=== PATIENT | female | born 1990 | race Hispanic/Latino ===

== ENCOUNTER 2018-07-17 23:05 | Emergency (ER) | payer SELFPAY ==
[2018-07-17 23:43] LABS: Absolute Lymphocytes (CBC) 1.3 K/uL (0.7-4.9); Absolute Monocytes 0.6 K/uL (0.1-1.3); Absolute Neutrophil 9.1 K/uL (1.8-8.0); Basophils % 0.1 % (0-1.3); Eosinophils % 0.1 % (0-4.4); Hematocrit 39.3 % (36.0-45.0); Lymphocytes % 11.7 % (15.3-44.8); MPV 8.7 fL (7.6-11.3); Monocytes % 5.1 % (3.3-12.3); RBC Red Blood Cell Count 4.58 M/uL (3.86-4.86)
[2018-07-17 23:54] LABS: Urine Blood NEGATIVE (NEG); Urine Glucose NEGATIVE (NEG); Urine Protein 2+ (NEG); Urine pH 5.5 (5.0-7.0)
[2018-07-18 00:19] LABS: ALT/SGPT 73 U/L (12-78); AST/SGOT 43 U/L (15-37); Albumin 3.9 g/dL (3.4-5.0); Alkaline Phosphatase 74 U/L (45-117); BUN Blood Urea Nitrogen 7 mg/dL (7-18); Bicarbonate 21 mmol/L (21-32); Bilirubin Direct 0.2 mg/dL (0-0.2); Bilirubin Total 0.4 mg/dL (0.2-1.0); Glucose Level 105 mg/dL (74-106); HCG, Quantitative 66924 mIU/mL (1-3); Lipase 164 U/L (73-393); Potassium 3.4 mmol/L (3.5-5.1); Protein, Total 8.5 g/dL (6.4-8.2); Sodium Level 138 mmol/L (136-145)
[2018-07-18] MEDS ORDERED: NA CHLORIDE 0.9% 1,000 ML ONE (00:19)
[2018-07-18] MEDS ORDERED: PROMETHAZINE 25 MG/ML VIAL ONE (00:19)
--- NOTE | 2018-07-18 01:16 | ER ---
Nurse's Notes [facility] Name: Lissa Hanna Age: 27 yrs Sex: Female : 1990 Arrival Date: 07/17/2018 Time: 23:14 Bed 6 Private MD: Diagnosis: 13 weeks gestation of ;Cholelithiasis Presentation: 07/17 23:23 Presenting complaint: Patient states: she is having epigastric pain radiating to back bb with vomiting x 5 days denies diarrhea or fever pt states she is 13 weeks . Transition of care: patient was not received from another setting of care. Onset of symptoms was July 12, 2018. Risk Assessment: Do you want to hurt yourself or someone else? Patient reports no desire to harm self or others. Initial Sepsis Screen: Does the patient meet any 2 criteria? No. Patient's initial sepsis screen is negative. Does the patient have a suspected source of infection? No. Patient's initial sepsis screen is negative. Care prior to arrival: None. 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 - Ebola Screening: : No symptoms or risks identified at this time. - Social history:: Smoking status: Patient/guardian denies using tobacco, never smoked. Screenin:24 Abuse screen: Denies threats or abuse. Denies injuries from another. Nutritional cc3 screening: No deficits noted. Tuberculosis screening: No symptoms or risk factors identified. Fall Risk Ambulatory Aid- None/Bed Rest/Nurse Assist (0 pts). Gait- Normal/Bed Rest/Wheelchair (0 pts) Mental Status- Oriented to own ability (0 pts). Assessment: 23:24 General: Appears in no apparent distress. comfortable, Behavior is calm, cooperative, cc3 appropriate for age. Pain: Complains of pain in abdomen. Neuro: Level of Consciousness is awake, alert, obeys commands, Oriented to person, place, time, situation, Appropriate for age. Cardiovascular: Denies chest pain, Patient's skin is warm and dry. Respiratory: Airway is patent Respiratory effort is even, unlabored, Respiratory pattern is regular, symmetrical. GI: Abdomen is round Bowel sounds present X 4 quads. Abd is soft and non tender X 4 quads. : No signs and/or symptoms were reported regarding the genitourinary system. EENT: No signs and/or symptoms were reported regarding the EENT system. Derm: No signs and/or symptoms reported regarding the dermatologic system. Musculoskeletal: Circulation, motion, and sensation intact. Range of motion: intact in all extremities. 07/18 00:18 Reassessment: Patient appears in no apparent distress at this time. Patient and/or cc3 family updated on plan of care and expected duration. Pain level reassessed. Patient is alert, oriented x 3, equal unlabored respirations, skin warm/dry/pink. 01:07 Reassessment: Patient appears in no apparent distress at this time. Patient and/or cc3 family updated on plan of care and expected duration. Pain level reassessed. Patient is alert, oriented x 3, equal unlabored respirations, skin warm/dry/pink. 01:25 Reassessment: Patient appears in no apparent distress at this time. Patient and/or cc3 family updated on plan of care and expected duration. Pain level reassessed. Patient is alert, oriented x 3, equal unlabored respirations, skin warm/dry/pink. RASHI Garsia discharged the patient home with prescription given. IV cannula removed and patient left ER vitally stable and ambulatory with her . Patient denies pain at this time. Patient states feeling better. Patient states symptoms have improved. Vital Signs: 07/17 23:27 BP 105 / 67; Pulse 87; Resp 16 S; Temp 98.2(O); Pulse Ox 100% on R/A; Weight 99.79 kg bb (R); Height 5 ft. 5 in. (165.10 cm) (R); Pain 11/09; 07/18 00:30 BP 129 / 74; Pulse 65; Resp 17 S; Pulse Ox 100% on R/A; cc3 01:08 BP 106 / 70; Pulse 68; Resp 17 S; Pulse Ox 99% on R/A; cc3 07/17 23:27 Body Mass Index 36.61 (99.79 kg, 165.10 cm) bb ED Course: 07/17 23:14 Patient arrived in ED. es 23:17 [facility]C [facility] kb 23:17 Angelito Ceballos MD is Attending Physician. kb 23:24 Lisa Wan is Primary Nurse. cc3 23:24 Patient has correct armband on for positive identification. Placed in gown. Bed in low cc3 position. Call light in reach. Side rails up X 1. Pulse ox on. NIBP on. 23:26 Triage completed. bb 23:27 Arm band placed on Patient placed in an exam room, on a stretcher, on pulse oximetry. bb Family accompanied patient. 23:30 Inserted saline lock: 20 gauge in right antecubital area, using aseptic technique. cc3 Blood collected. 07/18 00:26 Ultrasound completed. Patient tolerated well. Notified CAR GROOMER/PA sarah. sg3 00:30 US Abdomen Limited In Process Unspecified. EDMS 00:30 US Transvaginal Ob In Process Unspecified. EDMS 01:25 No provider procedures requiring assistance completed. IV discontinued, intact, cc3 bleeding controlled, No redness/swelling at site. Pressure dressing applied. Administered Medications: 00:05 Drug: NS 0.9% 1000 ml Route: IV; Rate: 1000 ml; Site: right antecubital; cc3 01:20 Follow up: Response: No adverse reaction; IV Status: Completed infusion; IV Intake: cc3 1000ml 00:05 Drug: Phenergan 12.5 mg Route: IVP; Site: right antecubital; cc3 00:30 Follow up: Response: No adverse reaction; Nausea is decreased cc3 Intake: 01:20 IV: 1000ml; Total: 1000ml. cc3 Outcome: 01:15 Discharge ordered by . kb 01:25 Discharged to home ambulatory, with family. cc3 01:25 Condition: stable 01:25 Discharge instructions given to patient, family, Instructed on discharge instructions, follow up and referral plans. medication usage, Demonstrated understanding of instructions, follow-up care, medications, Prescriptions given X 1. 01:30 Patient left the ED. cc3 Signatures: Dispatcher [employer] EDAR Sarah Garsia FNP-C FNP-Ckb Salyer, Edna es Almeida, Linda, RN RN bb Awa Hodges sg3 Lisa Wan cc3
--- NOTE | 2018-07-18 01:16 | EDPHYS ---
Physician Documentation [facility] Name: Lissa Hanna Age: 27 yrs Sex: Female : 1990 Arrival Date: 07/17/2018 Time: 23:14 Bed 6 Private MD: ED Physician Angelito Ceballos HPI: 07/18 00:31 This 27 yrs old Female presents to ER via Ambulatory with complaints of kb Abdominal Pain, Nausea/Vomiting, Dizziness, Back Pain. 00:30 The patient presents with abdominal pain in the epigastric area, in the right upper kb quadrant. The patient has not experienced similar symptoms in the past. The patient has not recently seen a physician. 00:31 Onset: The symptoms/episode began/occurred 5 day(s) ago. The symptoms radiate to back. kb Associated signs and symptoms: Pertinent positives: nausea and vomiting. The symptoms are described as intermittent. Modifying factors: The symptoms are alleviated by nothing, the symptoms are aggravated by nothing. Severity of pain: At its worst the pain was moderate in the emergency department the pain is unchanged. Pt reports nausea, vomiting and upper abd pain that radiates to back for 5 days. Also reports she found out she was 2 weeks ago. Last LMP was 04/16/18. . 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 - Ebola Screening: : No symptoms or risks identified at this time. - Social history:: Smoking status: Patient/guardian denies using tobacco, never smoked. ROS: 07/18 00:29 Constitutional: Negative for fever, chills, and weight loss, Neck: Negative for injury, kb pain, and swelling, Cardiovascular: Negative for chest pain, palpitations, and edema, Respiratory: Negative for shortness of breath, cough, wheezing, and pleuritic chest pain, Back: Negative for injury and pain, : Negative for injury, bleeding, discharge, and swelling, MS/Extremity: Negative for injury and deformity, Skin: Negative for injury, rash, and discoloration, Neuro: Negative for headache, weakness, numbness, tingling, and seizure. Abdomen/GI: Positive for abdominal pain, nausea and vomiting, Negative for diarrhea, constipation, abdominal cramps, abdominal distension, anorexia. Exam: 00:29 Constitutional: This is a well developed, well nourished patient who is awake, alert, kb and in no acute distress. Head/Face: Normocephalic, atraumatic. Chest/axilla: Normal chest wall appearance and motion. Nontender with no deformity. No lesions are appreciated. Cardiovascular: Regular rate and rhythm with a normal S1 and S2. No gallops, murmurs, or rubs. Normal PMI, no JVD. No pulse deficits. Respiratory: Lungs have equal breath sounds bilaterally, clear to auscultation and percussion. No rales, rhonchi or wheezes noted. No increased work of breathing, no retractions or nasal flaring. Back: No spinal tenderness. No costovertebral tenderness. Full range of motion. Skin: Warm, dry with normal turgor. Normal color with no rashes, no lesions, and no evidence of cellulitis. MS/ Extremity: Pulses equal, no cyanosis. Neurovascular intact. Full, normal range of motion. Neuro: Awake and alert, GCS 15, oriented to person, place, time, and situation. Cranial nerves II-XII grossly intact. Motor strength 5/5 in all extremities. Sensory grossly intact. Cerebellar exam normal. Normal gait. 00:29 Abdomen/GI: Inspection: obese Bowel sounds: normal, in all quadrants, Palpation: soft, in all quadrants, moderate abdominal tenderness, in the epigastric area and right upper quadrant. Vital Signs: 07/17 23:27 BP 105 / 67; Pulse 87; Resp 16 S; Temp 98.2(O); Pulse Ox 100% on R/A; Weight 99.79 kg bb (R); Height 5 ft. 5 in. (165.10 cm) (R); Pain 11/09; 07/18 00:30 BP 129 / 74; Pulse 65; Resp 17 S; Pulse Ox 100% on R/A; cc3 01:08 BP 106 / 70; Pulse 68; Resp 17 S; Pulse Ox 99% on R/A; cc3 05/18 23:27 Body Mass Index 36.61 (99.79 kg, 165.10 cm) bb MDM: 07/17 23:17 Patient medically screened. kb 07/18 00:29 Data reviewed: vital signs, nurses notes. Data interpreted: Pulse oximetry: on room air kb is 100 %. Interpretation: normal. Counseling: I had a detailed discussion with the patient and/or guardian regarding: the historical points, exam findings, and any diagnostic results supporting the discharge/admit diagnosis, lab results, radiology results, the need for outpatient follow up, an OB/Gyne specialist, to return to the emergency department if symptoms worsen or persist or if there are any questions or concerns that arise at home. 07/17 23:20 Order name: Basic Metabolic Panel; Complete Time: 00:22 kb 07/17 23:20 Order name: CBC with Diff; Complete Time: 23:53 kb 07/17 23:20 Order name: Hepatic Function; Complete Time: 00:22 kb 07/17 23:20 Order name: Lipase; Complete Time: 00:22 kb 07/17 23:20 Order name: Quantitative Hcg; Complete Time: 00:22 kb 07/17 23:20 Order name: Abo/rh Typing; Complete Time: 00:10 kb 07/17 23:20 Order name: IV Saline Lock; Complete Time: 23:41 kb 07/17 23:20 Order name: Labs collected and sent; Complete Time: 23:41 kb 07/17 23:25 Order name: US Abdomen Limited kb 07/17 23:25 Order name: US Transvaginal Ob kb 07/17 23:48 Order name: Urine Dipstick--Ancillary (enter results); Complete Time: 00:03 ar5 07/17 23:48 Order name: Urine --Ancillary (enter results); Complete Time: 00:03 ar5 07/17 23:20 Order name: Urine Test (obtain specimen); Complete Time: 23:49 kb 07/17 23:20 Order name: Urine Dipstick-Ancillary (obtain specimen); Complete Time: 23:49 kb 07/18 00:29 Order name: PO challenge; Complete Time: 01:13 kb Administered Medications: 00:05 Drug: NS 0.9% 1000 ml Route: IV; Rate: 1000 ml; Site: right antecubital; cc3 01:20 Follow up: Response: No adverse reaction; IV Status: Completed infusion; IV Intake: cc3 1000ml 00:05 Drug: Phenergan 12.5 mg Route: IVP; Site: right antecubital; cc3 00:30 Follow up: Response: No adverse reaction; Nausea is decreased cc3 Disposition: 07/18/18 01:15 Discharged to Home. Impression: 13 weeks gestation of , Cholelithiasis. - Condition is Stable. - Discharge Instructions: Cholelithiasis, [id number], Second Trimester of , [id number]. - Prescriptions for promethazine 25 mg Oral Tablet - take 1 tablet by ORAL route every 8 hours As needed; 20 tablet. - Medication Reconciliation Form, Thank You Letter, Antibiotic Education, Prescription Opioid Use form. - Follow up: Emergency Department; When: As needed; Reason: Worsening of condition. Follow up: Private Physician; When: 2 - 3 days; Reason: Recheck today's complaints, Continuance of care, Re-evaluation by your physician. Addendum: 07/19/2018 06:45 Co-signature as Attending Physician, Angelito Ceballos MD I agree with the assessment and t w4 plan of care. Signatures: Dispatcher [employer] EDMS Sarah Garsia, MORGAN-C ASSURANCE MANAGER INSURANCE-[employer]ak[employer] Linda Almeida RN RN Angelito Boone MD MD tw4 Lisa Wan cc3 Corrections: (The following items were deleted from the chart) 07/18 01:30 01:15 07/18/2018 01:15 Discharged to Home. Impression: 13 weeks gestation of ; cc3 Cholelithiasis. Condition is Stable. Discharge Instructions: Cholelithiasis, [id number], Second Trimester of , [id number]. Prescriptions for promethazine 25 mg Oral Tablet - take 1 tablet by ORAL route every 8 hours As needed; 20 tablet. and Forms are Medication Reconciliation Form, Thank You Letter, Antibiotic Education, Prescription Opioid Use. Follow up: Emergency Department; When: As needed; Reason: Worsening of condition. Follow up: Private Physician; When: 2 - 3 days; Reason: Recheck today's complaints, Continuance of care, Re-evaluation by your physician. kb
--- NOTE | 2018-07-18 12:53 | RAD REPORT ---
EXAM DESCRIPTION: US - Transvaginal OB - 07/18/2018 12:30 am CLINICAL HISTORY: ABD CRAMPING, COMPARISON: No comparisons FINDINGS: A single gestational sac is seen within the uterus. The shape of the sac is within normal limits for gestational age. Within the sac is a single pole with crown-rump length of 7.9 cm, c orrelating to estimated gestational age of 13 weeks 6 days. Estimated date of delivery is 01/17/2019. Heart rate is 161 BPM. The placenta is not yet developed due to early gestational age. The maternal adnexa and ovaries are within normal limits. Normal Doppler blood flow was demonstrated to both ovaries. IMPRESSION: Single live early intrauterine gestation with estimated gestational age of 13 weeks 6 da ys, FAUSTINA 01/17/2019. No unusual or unexpected finding.
--- NOTE | 2018-07-18 12:53 | RAD REPORT ---
EXAM DESCRIPTION: US - Abdomen Exam Limited - 07/18/2018 12:30 am CLINICAL HISTORY: ABD PAIN COMPARISON: <Comparisons> FINDINGS: The gallbladder demonstrates multiple shadowing gallstones. No pericholecystic fluid or ga llbladder wall thickening. The common bile duct is normal measuring 5 mm. The liver demonstrates no findings of intrahepatic biliary dilatation. IMPRESSION: Cholelithiasis.
== END 2018-07-18 01:30 | disposition home or self-care (01) ==
LOC: ER 23:05
DX: O99.611 Diseases of the digestive system complicating pregnancy, first trimester (principal); Z3A.13 13 weeks gestation of pregnancy
CPT/HCPCS: 36415; 76705; 76817; 80048; 80076; 81003; 81025; 83690; 84702; 85025; 86900; 86901; 96361; 96374; 99284; J2550; J7030